=== PATIENT | male | born 1985 | race African-American/Black ===

== ENCOUNTER 2018-03-20 01:42 | Emergency (ER) | payer SELFPAY ==
[~2018-03-20] VITALS: Ht 180.3 cm; Wt 65.8 kg
[2018-03-20 01:42] VITALS: BP 152/101
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
[2018-03-20 02:39] LABS: BARBITURATES NEG (NEG); BENZODIAZEPINES NEG (NEG); CANNABINOIDS POS (NEG); COCAINE NEG (NEG); METHADONE NEG (NEG); OPIATES NEG (NEG); PHENCYCLIDINE NEG (NEG)
[2018-03-20 02:40] LABS: AMPHETAMINE/METHAMPHETAMINE NEG (NEG)
[2018-03-20 02:43] LABS: BILIRUBIN,URINE NEG (NEG); CLARITY,URINE CLEAR; COLOR,URINE YELLOW; GLUCOSE,URINE NEG (NEG)
[2018-03-20 02:44] LABS: BACTERIA,URINE 0 /HPF (0-FEW); NITRITE,URINE NEG (NEG); RBC,URINE 0 /HPF (0-2); SQUAMOUS EPITHELIAL CELL,UR OCC /LPF; UROBILINOGEN,URINE 0.2 mg/dL (0.2 mg/dL); WBC,URINE OCC /HPF (0-4)
[2018-03-20 02:56] LABS: CALCIUM 9.2 mg/dL (8.5-10.1); CREATININE 1.1 mg/dL (0.7-1.3); DIRECT BILIRUBIN 0.1 mg/dL (0.0-0.2); GFR 78.1; MAGNESIUM 2.1 mg/dL (1.8-2.4); POTASSIUM 3.4 mmol/L (3.5-5.1); TOTAL BILIRUBIN 0.4 mg/dL (0.2-1.0); TOTAL PROTEIN 8.3 g/dL (6.4-8.2)
[2018-03-20] MEDS ORDERED: IV NORMAL SALINE 1,000ML 1,000 ML IV SCH (03:00)
[2018-03-20] MEDS ORDERED: MVI, ADULT NO.4 WITH VIT K 10 ML, FOLIC ACID SYRINGE for ER 1 MG, THIAMINE 100 MG in IV... IV SCH ×4 (03:00)
--- NOTE | 2018-03-20 06:14 | RAD ---
EXAM: 1. CT HEAD WITHOUT CONTRAST. 2. CT CERVICAL SPINE WITHOUT CONTRAST. HISTORY: Fall. TECHNIQUE: Computed tomography of the head and cervical spine was performed without intravenous contrast. COMPARISON: None. FINDINGS: There is no intracranial hemorrhage. Ashraf-white differentiation is preserved. The ventricles are normal in size and position. There are mildly depressed fractures of the nasal bones. There is mild displacement toward the left. Overlying soft tissue swelling and a laceration are noted. There are no air-fluid levels in the sinuses. The orbits are unremarkable. The temporal bones are unremarkable. The calvarium reveals no suspicious lesions. There are limitations from motion artifact along the lower cervical spine. This simulates anterolisthesis at C5-6. No true malalignment is seen. C7 and T1 are incompletely included. The craniocervical junction is unremarkable. No fractures are identified. Intervertebral disc heights are maintained. There is no prevertebral soft tissue swelling. There is no clear central canal stenosis or neural foraminal stenosis. IMPRESSION: 1. No acute intracranial findings. 2. Bilateral nasal bone fractures with overlying soft tissue swelling and a laceration. 3. The patient could not cooperate with the study. The cervical spine examination is limited by motion. There is no clear fracture or malalignment. Cervical spine radiographs could further confirm normal cervical alignment if there is persistent concern. *One or more of the following individualized dose reduction techniques were utilized for this examination: 1. Automated exposure control. 2. Adjustment of the mA and/or kV according to patient size. 3. Use of iterative reconstruction technique. Electronically signed by: Breanne Martinez MD (03/20/2018 6:11 AM) [id number]
== END 2018-03-20 06:47 | disposition home or self-care (01) ==
LOC: ER 01:42
DX: F10.129 Alcohol abuse with intoxication, unspecified (principal); F12.10 Cannabis abuse, uncomplicated; Z72.0 Tobacco use; Z71.6 Tobacco abuse counseling
CPT/HCPCS: 36415; 70450; 72125; 80048; 80076; 80307; 81001; 83735; 99285; G0480; G0479